=== PATIENT | male | born 1940 | race Caucasian/White ===

== ENCOUNTER 2022-10-30 20:02 | Inpatient (IN) | payer MEDICARE, BC ==
[~2022-10-30] VITALS: Ht 175.3 cm; Wt 63.5 kg
[2022-10-30 20:45] LABS: BASOPHILS # (AUTO) 0.1 K/uL (0.0-0.2); BASOPHILS % (AUTO) 0.3 % (0.0-2.0); EOSINOPHILS % (AUTO) 1.7 % (0.0-6.0); HEMATOCRIT 41 % (39-51); HEMOGLOBIN 13.3 g/dL (13.5-17.5); LYMPHOCYTES # (AUTO) 26.2 K/uL (0.8-4.8); LYMPHOCYTES % (AUTO) 84.8 % (20.0-44.0); MEAN CORPUSCULAR HGB CONC 33 g/dl (31.0-36.0); MEAN CORPUSCULAR VOLUME 99 fL (80-96); MONOCYTES # (AUTO) 0.6 K/uL (0.1-1.30); MONOCYTES % (AUTO) 1.8 % (2.0-12.0); NEUTROPHILS # (AUTO) 3.5 K/uL (1.8-8.9); NEUTROPHILS % (AUTO) 11.4 % (43.0-81.0); PLATELET COUNT (AUTO) 175 K/uL (150-450)
[2022-10-30 20:53] LABS: WHITE BLOOD COUNT (AUTO) 30.9 K/uL (4.3-11.0)
[2022-10-30] MEDS ORDERED: CEFEPIME 1 GM in IV D5W 50 ML IV ONE (21:00)
[2022-10-30] MEDS ORDERED: VANCOMYCIN 1 GM in IV D5W 250 ML IV ONE (21:00)
[2022-10-30 21:07] LABS: ALANINE AMINOTRANSFERASE 46 U/L (12-78); ALBUMIN 3.1 g/dL (3.4-5.0); ALKALINE PHOSPHATASE 80 U/L (46-116); ASPARTATE AMINOTRANSFERASE 55 U/L (15-37); BILIRUBIN,DIRECT 0.2 mg/dL (0.0-0.2); BILIRUBIN,TOTAL 0.9 mg/dL (0.2-1.0); CALCIUM, SERUM 8.8 mg/dL (8.5-10.1); CARBON DIOXIDE 29 mmol/L (21-32); CHLORIDE 110 mmol/L (98-107); CREATININE 0.9 mg/dL (0.6-1.3); GLUCOSE 138 mg/dL (74-106); POTASSIUM 4.5 mmol/L (3.5-5.1); SODIUM SERUM 146 mmol/L (136-145); TOTAL PROTEIN, SERUM 6.8 g/dL (6.4-8.2); UREA NITROGEN, BLOOD 28 mg/dL (7-18)
[2022-10-30] MEDS ORDERED: VANCOMYCIN 1 GM /D5W 250 ML PB IV ONE (21:08)
[2022-10-30] MEDS ORDERED: CEFEPIME 1 GM VIAL ONE (21:08)
[2022-10-30 21:11] LABS: EOSINOPHILS % (MANUAL) 2 % (0-4); LYMPHOCYTES % (MANUAL) 75 % (16-48); MONOCYTES % (MANUAL) 4 % (0-11.0); NEUTROPHILS % (MANUAL) 19 (42-76)
[2022-10-30] MEDS ORDERED: CEFTRIAXONE 1 G VIAL ONE (21:33)
[2022-10-30 21:55] LABS: BILIRUBIN,URINE NEGATIVE (NEGATIVE); COLOR,URINE YELLOW (YELLOW); LEUKOCYTE ESTERASE ,URINE NEGATIVE (NEGATIVE); NITRITE, URINE NEGATIVE (NEGATIVE); PROTEIN,URINE 1+ mg/dl (NEGATIVE); UGLUCOSE NEGATIVE (NEGATIVE)
[2022-10-30] MEDS ORDERED: MORPHINE SULFATE INJ 2 MG/ML DISP.SYRIN IV PRN (22:30)
[2022-10-30] MEDS ORDERED: hydrALAZINE HCL IV 20 MG VIAL IV PRN (22:30)
[2022-10-30] MEDS ORDERED: ACETAMINOPHEN 325 MG TABLET PO PRN (22:30)
[2022-10-30] MEDS ORDERED: ONDANSETRON HCL/PF 4 MG/2 ML VIAL IVP PRN (22:30)
[2022-10-30] MEDS ORDERED: ALBUTEROL FS 2.5 MG/0.5 ML VIAL.NEB NEB PRN (22:30)
[2022-10-30 22:37] LABS: BACTERIA,URINE None seen /HPF (None Seen); SQUAMOUS EPITHELIAL CELL,UR None Seen /HPF (None Seen); WBC,URINE 0-2 /HPF (0-3)
[2022-10-30 22:38] LABS: MUCUS,URINE Moderate /LPF (None Seen)
[2022-10-31] VITALS (8 sets, daily range): BP systolic 103–147; BP diastolic 51–73; TEMP 97.3–98.5; O2SAT 94–99
[2022-10-31] MEDS ORDERED: IPRATROPIUM/ALBUTEROL INHALER IH SCH
[2022-10-31] MEDS: IV NS 0.9% 1,000 ML IV SCH ×2 (00:06→14:23)
[2022-10-31] MEDS ORDERED: CEFEPIME 2 GM in IV D5W 100 ML IV ONE (05:00)
[2022-10-31] MEDS ORDERED: CEFEPIME 1 GM VIAL ONE (05:03)
[2022-10-31 06:12] LABS: BASOPHILS # (AUTO) 0.1 K/uL (0.0-0.2); BASOPHILS % (AUTO) 0.3 % (0.0-2.0); EOSINOPHILS % (AUTO) 1.8 % (0.0-6.0); HEMATOCRIT 39 % (39-51); HEMOGLOBIN 12.7 g/dL (13.5-17.5); LYMPHOCYTES # (AUTO) 24.6 K/uL (0.8-4.8); LYMPHOCYTES % (AUTO) 83.1 % (20.0-44.0); MEAN CORPUSCULAR HGB CONC 33 g/dl (31.0-36.0); MEAN CORPUSCULAR VOLUME 99 fL (80-96); MONOCYTES # (AUTO) 0.8 K/uL (0.1-1.30); MONOCYTES % (AUTO) 2.7 % (2.0-12.0); NEUTROPHILS # (AUTO) 3.6 K/uL (1.8-8.9); NEUTROPHILS % (AUTO) 12.1 % (43.0-81.0); PLATELET COUNT (AUTO) 153 K/uL (150-450); RED BLOOD CELL COUNT(AUTO) 3.92 MIL/uL (4.5-6.0); WHITE BLOOD COUNT (AUTO) 29.6 K/uL (4.3-11.0)
[2022-10-31 06:22] LABS: ALANINE AMINOTRANSFERASE 43 U/L (12-78); ALBUMIN 2.8 g/dL (3.4-5.0); ALKALINE PHOSPHATASE 74 U/L (46-116); ASPARTATE AMINOTRANSFERASE 46 U/L (15-37); CALCIUM, SERUM 8.7 mg/dL (8.5-10.1); CARBON DIOXIDE 29 mmol/L (21-32); CHLORIDE 108 mmol/L (98-107); CREATININE 0.8 mg/dL (0.6-1.3); GLUCOSE 133 mg/dL (74-106); MAGNESIUM 2.1 mg/dL (1.8-2.4); PHOSPHORUS 3.5 mg/dL (2.5-4.9); POTASSIUM 4.2 mmol/L (3.5-5.1); SODIUM SERUM 144 mmol/L (136-145); TOTAL PROTEIN, SERUM 6.3 g/dL (6.4-8.2); UREA NITROGEN, BLOOD 26 mg/dL (7-18)
[2022-10-31] MEDS: ALBUTEROL FS 2.5 MG/0.5 ML VIAL.NEB NEB SCH ×3 (07:35→19:56)
[2022-10-31] MEDS: IPRATROPIUM NEB FS 0.5 MG/2.5 ML AMPUL.NEB IH SCH ×3 (07:35→19:55)
[2022-10-31] MEDS ORDERED: VANCOMYCIN 1 GM in IV D5W 250ml IV SCH (09:00)
[2022-10-31] MEDS: HEPARIN SODIUM, PORCINE 5000 UNITS/1 ML VIAL SQ SCH ×2 (09:00→21:23)
[2022-10-31 09:30] LABS: EOSINOPHILS % (MANUAL) 4 % (0-4); LYMPHOCYTES % (MANUAL) 78 % (16-48); MONOCYTES % (MANUAL) 4 % (0-11.0); NEUTROPHILS % (MANUAL) 14 (42-76)
[2022-10-31] MEDS: CEFTRIAXONE 2 G in IV D5W 100 ML IV SCH (14:24)
[2022-10-31] MEDS: DOXYCYCLINE HYCLATE (100 MG) 100 MG TABLET PO SCH ×2 (14:24→21:21)
[2022-10-31] MEDS ORDERED: FLUT1BLS6 IH (14:45)
[2022-10-31] MEDS ORDERED: POTA20TA83 PO (14:45)
[2022-10-31] MEDS ORDERED: LEVE500T20 PO (14:45)
[2022-10-31] MEDS ORDERED: METO50TA16 PO (14:45)
[2022-10-31] MEDS ORDERED: IPRA3AMP22 NEB (14:45)
[2022-10-31] MEDS ORDERED: AMIO200T5 PO (14:45)
[2022-10-31] MEDS ORDERED: RIVA10TA PO (14:45)
[2022-10-31] MEDS ORDERED: CEFEPIME 2 GM in IV D5W 100 ML IV SCH (21:00)
[2022-11-01] VITALS (12 sets, daily range): BP systolic 114–142; BP diastolic 53–84; TEMP 97.8–98.4; O2SAT 94–99
[2022-11-01] MEDS: ALBUTEROL FS 2.5 MG/0.5 ML VIAL.NEB NEB SCH ×4 (02:14→20:11)
[2022-11-01] MEDS: IPRATROPIUM NEB FS 0.5 MG/2.5 ML AMPUL.NEB IH SCH ×4 (02:14→20:11)
[2022-11-01] MEDS: IV NS 0.9% 1,000 ML IV PRN ×2 (03:59→18:00)
[2022-11-01 06:45] LABS: CALCIUM, SERUM 8.5 mg/dL (8.5-10.1); CREATININE 0.6 mg/dL (0.6-1.3); POTASSIUM 3.5 mmol/L (3.5-5.1)
[2022-11-01] MEDS: HEPARIN SODIUM, PORCINE 5000 UNITS/1 ML VIAL SQ SCH ×2 (08:04→20:55)
[2022-11-01] MEDS: CEFTRIAXONE 2 G in IV D5W 100 ML IV SCH (14:13)
[2022-11-02] VITALS (12 sets, daily range): BP systolic 106–138; BP diastolic 60–72; TEMP 97.6–98.7; O2SAT 95–99
[2022-11-02] MEDS: ALBUTEROL FS 2.5 MG/0.5 ML VIAL.NEB NEB SCH ×4 (02:14→20:16)
[2022-11-02] MEDS: IPRATROPIUM NEB FS 0.5 MG/2.5 ML AMPUL.NEB IH SCH ×4 (02:14→20:16)
[2022-11-02] MEDS: IV NS 0.9% 1,000 ML IV PRN (08:11)
[2022-11-02] MEDS: HEPARIN SODIUM, PORCINE 5000 UNITS/1 ML VIAL SQ SCH ×2 (08:12→21:02)
[2022-11-02] MEDS: CEFTRIAXONE 2 G in IV D5W 100 ML IV SCH (14:07)
[2022-11-02] MEDS ORDERED: DOXY-326 PO (14:18)
[2022-11-02] MEDS ORDERED: METO25TA6 PO (14:18)
[2022-11-02] MEDS: VANCOMYCIN 1 GM in IV D5W 250 ML IV SCH (16:03)
[2022-11-03] VITALS (7 sets, daily range): BP systolic 121–141; BP diastolic 69–71; TEMP 98.1–98.4; O2SAT 95–99
[2022-11-03] MEDS: IPRATROPIUM NEB FS 0.5 MG/2.5 ML AMPUL.NEB IH SCH ×2 (02:07→07:58)
[2022-11-03] MEDS: ALBUTEROL FS 2.5 MG/0.5 ML VIAL.NEB NEB SCH ×2 (02:07→07:58)
[2022-11-03] MEDS: IV NS 0.9% 1,000 ML IV PRN (02:22)
[2022-11-03] MEDS: VANCOMYCIN 1 GM in IV D5W 250 ML IV SCH (02:22)
[2022-11-03 07:52] LABS: CALCIUM, SERUM 8.2 mg/dL (8.5-10.1); CREATININE 0.6 mg/dL (0.6-1.3); POTASSIUM 3.2 mmol/L (3.5-5.1)
[2022-11-03] MEDS: HEPARIN SODIUM, PORCINE 5000 UNITS/1 ML VIAL SQ SCH (08:59)
[2022-11-03] MEDS ORDERED: POTASSIUM CHLORIDE 20 MEQ POWDER PACKET PO ONE (11:00)
[2022-11-03] MEDS ORDERED: LINE600T12 PO (12:28)
== END 2022-11-03 13:00 | disposition home health service (06) | DRG 177 ==
LOC: ER 20:06 → TELE 23:01
PROVIDERS: ADMIT Internal Medicine; ATTEND Internal Medicine
DX: J69.0 Pneumonitis due to inhalation of food and vomit (principal); G93.41 Metabolic encephalopathy; J96.01 Acute respiratory failure with hypoxia; J44.0 Chronic obstructive pulmonary disease with (acute) lower respiratory infection; I50.32 Chronic diastolic (congestive) heart failure; E87.0 Hyperosmolality and hypernatremia; D68.69 Other thrombophilia; C91.10 Chronic lymphocytic leukemia of B-cell type not having achieved remission; I48.91 Unspecified atrial fibrillation; L60.3 Nail dystrophy; M20.42 Other hammer toe(s) (acquired), left foot; M20.41 Other hammer toe(s) (acquired), right foot; Z20.822 Contact with and (suspected) exposure to COVID-19; Z86.73 Personal history of transient ischemic attack (TIA), and cerebral infarction without residual deficits; R74.01 Elevation of levels of liver transaminase levels; E86.0 Dehydration; M79.675 Pain in left toe(s); M79.674 Pain in right toe(s); S90.229A Contusion of unspecified lesser toe(s) with damage to nail, initial encounter; X58.XXXA Exposure to other specified factors, initial encounter; Y93.9 Activity, unspecified; Y92.89 Other specified places as the place of occurrence of the external cause; Z79.01 Long term (current) use of anticoagulants
CPT/HCPCS: 36415; 71045-TC; 80048-TC; 80053-TC; 80076-TC; 81001; 83605-TC; 83735-TC; 83880; 84100-TC; 84484-TC; 85025-TC; 85730-TC; 87040-TC; 87081-TC; 92526; 92611-TC; 93307-TC; 94799-TC; A4223; A4349; C9803; G0378; J0692; J0696; J1644; J3370; J7030; J7060